=== PATIENT | male | born 1980 | race Two or more races ===

== ENCOUNTER → 2017-02-25 | Outpatient (CLI) | payer MEDICAID ==
[2017-02-25 18:50] LABS: HEMOGLOBIN 15.9 g/dL (14.1-18.0); LYMPH # 1.7 K/mm3 (0.7-4.5); LYMPH % 19.8 % (10-50)
[2017-02-25 20:04] LABS: BUN 13 mg/dL (7-18)
[2017-02-25 20:19] LABS: GFR (ESTIMATED) 95 ML/MIN (>60)
[2017-02-27 08:48] LABS: Vitamin D, 25-Hydroxy 29.2 ng/mL (30.0-100.0)
[2017-02-27 09:37] LABS: HBsAg Screen Negative (Negative); Hep A Ab, IgM Negative (Negative); Hep B Core Ab, IgM Negative (Negative); Hep C Virus Ab <0.1 (0.0-0.9); Vitamin B12 387 pg/mL (211-946)
== END ==
LOC: LAB 18:12
PROVIDERS: Emergency Medicine
DX: R53.83 Other fatigue (principal); K21.9 Gastro-esophageal reflux disease without esophagitis; F41.9 Anxiety disorder, unspecified; F32.9 Major depressive disorder, single episode, unspecified; Z93.2 Ileostomy status; Z78.9 Other specified health status; Z00.00 Encounter for general adult medical examination without abnormal findings